=== PATIENT | female | born 1945 | race Caucasian/White ===

== ENCOUNTER → 2016-09-10 | Outpatient (CLI) | payer MEDICARE, BC ==
[~2016-09-10] MED LIST: ABREVA TOP; ACETAMINOPHEN PO; ALPRAZOLAM1 MG PO; AMLODIPINE BESYL5 MG PO; APRESOLINE10 MG PO; B-121000 MC3 PO; BENTYL10 MG PO; CAPECITABINE150 MG PO; CAPECITABINE500 MG PO; CLONIDINE PO; CYANOCOBALAM1000 MCG PO; DESYREL150 M1; DEXAMETHASONE4 MG PO; DOCU SOFT100 M1 PO; DOCUSATE SODIU100 MG PO; FOLIC ACID1 MG PO; HCTZ PO; HYDROCHLOROTHIA25 MG PO; HYDROMORPHONE ER8 MG PO; HYDROMORPHONE HC8 MG PO; K-TAB ER20 MEQ PO; KCL PO; LASIX PO; LEVAQUIN750 M1 PO; LIPITOR PO; LOMOTIL WHITE2.5 MG PO; LONSURF 15 MG-1 EACH PO; LOPRESSOR PO; METHIMAZOLE10 MG PO; METHIMAZOLE5 MG PO; METOPROLOL SUCC50 MG PO; METRONIDAZOLE PO; MORGIDOX100 MG PO; MULTI VITAMIN1 EACH PO; NORCO 7.5/325 T1 TAB PO; NORVASC PO; OMEPRAZOLE20 M1 PO; OMNICEF300 MG PO; PATIENT'S PHARMACY; PHENERGAN25 MG PO; PRILOSEC PO; PRILOSEC20 MG PO; PRINIVIL20 M1 PO; TEMAZEPAM30 MG PO; TRAZODONE PO; TUMS300 MG( 75 PO; VICODIN 5/500 T1 TAB PO; XANAX1 MG PO; XELODA500 MG PO; ZOCOR20 MG; ZOFRAN8 MG PO; ZYRTEC10 M1 PO; ZYRTEC10 M2 PO
--- NOTE | ~2016-09-10 | CT2 ---
[facility] A Service [facility] RADIOLOGY TEXT RESULTS PATIENT: JUWAN ALEXANDER LOCATION: [facility] : 44 UNIT #: [id number] AGE: [address]: Bekah Chaudhari MD SEX: F ORDER DR: [id number] [place], [place] [address] [id number] O MR#: [id number] Acc #: [id number] NAME: JUWAN ALEXANDER : 1945 SEX: F STUDY DATE/TIME: 09/10/2016 9:54 UNIT: [facility] ROOM: STUDY DESCRIPTION: CT Abd and Pelv W Cont Attending Physician: Bekha Chaudhari M.D. Referring Physician: Bekah Chaudhari M.D. Ordering Physician: Bekah Chaudhari M.D. Primary Care Physician: Primary Care Physician No MEDICAL IMAGING REPORT This report is preliminary unless electronic signature is present EXAM CT abdomen and pelvis with contrast INDICATION Restaging colon cancer. Observation for metastatic disease. PROCEDURE Contrast-enhanced CT of the abdomen and pelvis. COMPARISON 05/21/[address] exam was performed with one or more of the following radiation dose reduction techniques: automatic exposure control, adjustment of mA and/or kV according to patient size, and iterative reconstruction. FINDINGS Refer to the separately dictated chest CT for thoracic findings. ABDOMEN WITH CONTRAST: Hepatic lesions are larger. An index hypoenhancing mass on the right hepatic lobe measures 2.6 cm, previously 1.1 cm. The spleen, kidneys, adrenal glands and pancreas unremarkable. Small stones in the gallbladder. No evidence for active inflammation. Mentioned in the chest CT, there is irregular enhancement and pleural fluid at the left lung base suspicious for pleural-based metastatic disease. The pancreas is unremarkable. Bowel loops nondilated. Previous right hemicolectomy. Large ventral hernia containing bowel loops is stable. [facility] A Service [facility] RADIOLOGY TEXT RESULTS PATIENT: JUWAN ALEXANDER LOCATION: [facility] : 44 UNIT #: [id number] AGE: [address]: Bekah Chaudhari MD SEX: F ORDER DR: PELVIS WITH CONTRAST: Previous hysterectomy. No pelvic mass or adenopathy. No aggressive appearing bone lesion. IMPRESSION 1. Interval progression of hepatic metastatic disease. 2. Refer to the separately dictated chest CT for thoracic findings. Dictated by... Sascha Blevins M.D. THIS IS AN ELECTRONICALLY VERIFIED REPORT Sascha Blevins M.D. at 09/10/2016 4:52 PM Ketan TD: 09/10/2016 12:40 JOB #: [id number] MEDICAL IMAGING REPORT COPY
--- NOTE | ~2016-09-10 | CT55 ---
[facility] A Service of [facility] RADIOLOGY TEXT RESULTS PATIENT: JUWAN ALEXANDER [facility] UNIT #: [id number] AGE: [address]: Bekah Chaudhari MD SEX: F ORDER DR: [id number] [facility] [address] [place], [place] [address] [id number] O MR#: [id number] Acc #: [id number] NAME: JUWAN ALEXANDER : 1945 SEX: F STUDY DATE/TIME: 09/10/2016 9:54 UNIT: [facility] ROOM: STUDY DESCRIPTION: CT Chest W Con Attending Physician: Bekah Chaudhari M.D. Referring Physician: Bekah Chaudhari M.D. Ordering Physician: Bekah Chaudhari M.D. Primary Care Physician: Primary Care Physician No MEDICAL IMAGING REPORT This report is preliminary unless electronic signature is present EXAM CT chest with contrast INDICATION Restaging colon cancer. Observation for metastatic disease. PROCEDURE Contrast-enhanced CT of the chest COMPARISON 05/21/[address] exam was performed with one or more of the following radiation dose reduction techniques: automatic exposure control, adjustment of mA and/or kV according to patient size, and iterative reconstruction. FINDINGS Interval improvement in the large left effusion. There are multiple bilateral pulmonary nodules. Index nodule right lower lobe measures 3.2 x 1.5 cm, previously 2.4 x 1.2 cm. Many of the left lung nodules were obscured by the large effusion on the prior. In the upper lung zone they appear increased as well. There is a trace left pleural effusion with rim enhancement. There is some atelectasis or other opacity at the left lung base. There is a 1.9 cm low attenuation left hilar nodule not seen on the prior. 3.6 cm ill-defined low attenuation expansion at the left second costosternal junction. IMPRESSION 1. Interval progression of pulmonary metastatic disease. 2. Apparently new small left hilar node. 3. Irregular appearance of the left second costosternal junction could represent osseous metastatic disease. STS. [facility] A Service of [facility] RADIOLOGY TEXT RESULTS PATIENT: JUWAN ALEXANDER LOCATION: [facility] : 44 UNIT #: [id number] AGE: [address]: Bekah Chaudhari MD SEX: F ORDER DR: Dictated by... Sascha Blevins M.D. THIS IS AN ELECTRONICALLY VERIFIED REPORT Sascha Blevins M.D. at 09/10/2016 4:52 PM Ketan TD: 09/10/2016 12:37 JOB #: [id number] MEDICAL IMAGING REPORT COPY
[2016-09-10 12:16] LABS: POC - CREATININE 0.54 mg/dL (0.44-1.03); POC - GFR >60.0 mL/min (>60)
== END | disposition home or self-care (01) ==
LOC: CCAT 09:16
PROVIDERS: Internal Medicine Hematology
DX: C18.7 Malignant neoplasm of sigmoid colon (principal); C78.7 Secondary malignant neoplasm of liver and intrahepatic bile duct; C78.00 Secondary malignant neoplasm of unspecified lung
CPT/HCPCS: 71260; 74177; 82565; Q9967

== ENCOUNTER → 2016-11-26 | Outpatient (CLI) | payer MEDICARE, BC ==
--- NOTE | ~2016-11-26 | CT2 ---
[facility] A Service of [facility] RADIOLOGY TEXT RESULTS PATIENT: JUWAN ALEXANDER [facility] UNIT #: [id number] AGE: [address]: Bekah Chaudhari MD SEX: F ORDER DR: [id number] [facility]. [place], [place] [address] [id number] O MR#: [id number] Acc #: [id number] NAME: JUWAN ALEXANDER. : 1945 SEX: F STUDY DATE/TIME: 11/26/2016 10:36 UNIT: [facility] ROOM: STUDY DESCRIPTION: CT Abd and Pelv W Cont Attending Physician: Bekah Chaudhrai M.D. Referring Physician: Bekah Chaudhari M.D. Ordering Physician: Bekah Chaudhari M.D. Primary Care Physician: Primary Care Physician No MEDICAL IMAGING REPORT This report is preliminary unless electronic signature is present EXAM CT abdomen and pelvis with contrast DATE 11/26/2016 HISTORY Physician's order states malignant neoplasm in the sigmoid colon, malignant neoplasm in the colon, unspecified. Patient states complaints of chest pain, discomfort, and occasional constipation, shortness breath. Patient states additional history of colon resection and hysterectomy. Observation of metastatic disease. Restaging. COMPARISON CT abdomen and pelvis with contrast 09/10/2016. CT abdomen and pelvis with contrast 05/21/2016. PROCEDURE 1.5 mm axial images through the abdomen and pelvis after intravenous contrast administration. Enteric contrast was not administered. Sagittal and coronal reformatted images were obtained. This CT exam was performed with one or more of the following radiation dose reduction techniques: automatic exposure control, adjustment of mA and/or kV according to patient size, and iterative reconstruction. FINDINGS Abdomen findings: Surgical changes of the ascending colectomy with ileocolic anastomoses in the right mid abdomen, without evidence of local disease recurrence at the anastomotic site. No evidence of high-grade large or small bowel obstruction. Irregular hypodense lesions are scattered throughout the liver parenchyma consistent with multifocal metastatic disease. Some of the preexisting [facility] A Service of [facility] RADIOLOGY TEXT RESULTS PATIENT: JUWAN ALEXANDER LOCATION: [facility] #: [id number] : 43 UNIT #: [id number] AGE: [address]: Bekah Chaudhari MD SEX: F ORDER DR: lesions appear larger. For example, a 2.9 x 2.9 skin lesion in the posterior right hepatic lobe previously measured 2.6 x 2.3 cm. Another lesion in the posterior right hepatic lobe measures 1.8 cm compared to 1.1 cm previously. Aggregate lesions along the falciform ligament of the liver in the left hepatic lobe appear larger now measuring 3.4 cm short axis compared to 2.8 cm on the previous study. A few new tiny nodules are thought to be present in the right hepatic lobe, as well. The left portal vein is poorly opacified on this examination, and a tumor thrombus within the left portal venous branch cannot be excluded. The main portal vein and right portal vein branch appear well opacified and patent. Spleen, pancreas, adrenals are normal. Bilateral renal cysts noted. No pathologic mesenteric or retroperitoneal adenopathy is identified. There is a left-side ventral hernia containing nonobstructed small bowel loops, similar to prior exam. Pelvis findings: Trace pelvic free fluid is seen on the right of midline. Urinary bladder, rectum within normal limits. Presumed hysterectomy. No pathologic pelvic adenopathy is seen. 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 Advanced degenerative changes are present in the lumbar spine with mild lumbar levoscoliosis. No suspicious osteolytic or osteoblastic lesions are appreciated. Grade 1/2 anterolisthesis of L5 upon S1 unchanged. Abnormal chest findings have been reported separately on the CT chest study from this same date. IMPRESSION 1. Progression of hepatic metastatic disease since 09/10/2016. 2. Question of tumor thrombus within the left portal vein branch (series 7 image 144). 3. Uncomplicated cholelithiasis, not included in the body of the report. 4. Ascending colectomy with ileocolic anastomoses. 5. CT chest findings have been reported separately on this same date. 6. Please refer to the body of the report for additional CT abdomen and pelvis findings. Dictated by... Angela Guerra M.D. THIS IS AN ELECTRONICALLY VERIFIED REPORT Angela Guerra M.D. at 11/27/2016 7:09 AM [facility]/cindy TD: 11/26/2016 18:53 JOB #: [id number] MEDICAL IMAGING REPORT [facility] A Service of [facility] RADIOLOGY TEXT RESULTS PATIENT: JUWAN ALEXANDER LOCATION: [facility] : 44 UNIT #: [id number] AGE: [address]: Bekah Chaudhari MD SEX: F ORDER DR: Page 1 of 1 COPY
--- NOTE | ~2016-11-26 | CT55 ---
[facility] A Service of [facility] RADIOLOGY TEXT RESULTS PATIENT: JUWAN ALEXANDER [facility] : [facility] UNIT #: [id number] AGE: [address]: Bekah Chaudhari MD SEX: F ORDER DR: [id number] [facility] [address] [place], [place] [address] [id number] O MR#: [id number] Acc #: [id number] NAME: JUWAN ALEXANDER. : 1945 SEX: F STUDY DATE/TIME: 11/26/2016 10:36 UNIT: [facility] ROOM: STUDY DESCRIPTION: CT Chest W Con Attending Physician: Bekah Chaudhari M.D. Referring Physician: Bekah Chaudhari M.D. Ordering Physician: Bekah Chaudhari M.D. Primary Care Physician: Primary Care Physician No MEDICAL IMAGING REPORT This report is preliminary unless electronic signature is present EXAM CT chest with contrast DATE 11/26/2016 HISTORY 71-year-old female; history of colon cancer with colon resection. Chest pain and discomfort with shortness of breath. Observation for metastatic disease. Restaging. COMPARISON CT chest with contrast 09/10/2016 PROCEDURE 5 mm axial images through the chest after IV contrast administration. Sagittal and coronal reformatted images were obtained. This CT exam was performed with one or more of the following radiation dose reduction techniques: automatic exposure control, adjustment of mA and/or kV according to patient size, and iterative reconstruction. FINDINGS Numerous noncalcified bilateral lower lobe pulmonary nodules and masses have significantly increased in size since the 09/10/2016 examination, consistent with progression of disease. An index lesion in the left lower lobe measures 2.8 cm compared to 2.5 cm previously. Index lesion in the right lower lobe measures 2.5 cm compared to 2.0 cm previously. No definite new pulmonary nodules are identified. Extensive matted pleural-based metastatic disease in left lower lobe with probable loculated metastatic pleural fluid may be very slightly increased. Metastatic necrotic adenopathy in the left hilum is larger, currently measuring 2.2 cm compared to 1.9 cm previously. Other mildly enlarged mediastinal lymph nodes including 1 cm short axis precarinal node and 7 mm STS. [facility] A Service of [facility] RADIOLOGY TEXT RESULTS PATIENT: JUWAN ALEXANDER LOCATION: [facility] : 44 UNIT #: [id number] AGE: [address]: Bekah Chaudhari MD SEX: F ORDER DR: short-axis prevascular node appears stable. There is an expansile osteolysis of the sternal manubrium, which has progressed since the 09/10/2016 examination. Abnormal soft tissue thickening involves the left first and second costochondral junction and extends into the anterior mediastinum. IMPRESSION 1. Progression of metastatic disease within the chest. Preexisting pulmonary nodules and masses have significantly increased in size, and pleural-based metastatic disease within the left lower chest appears slightly increased, as well. 2. Expansile osteolysis of the sternomanubrial mixed with abnormal soft tissue extension into the anterior mediastinum and the left first and second costochondral junctions appears increased since the 09/10/2016 examination. 3. Left hilar adenopathy has increased. 4. CT abdomen and pelvis performed on the same date has been dictated separately. Dictated by... Angela Guerra M.D. THIS IS AN ELECTRONICALLY VERIFIED REPORT Angela Guerra M.D. at 11/27/2016 7:09 AM [facility]/cindy TD: 11/26/2016 19:59 JOB #: [id number] MEDICAL IMAGING REPORT Page 1 of 1 COPY
[2016-11-26 09:45] LABS: POC - CREATININE 0.65 mg/dL (0.44-1.03); POC - GFR >60.0 mL/min (>60)
== END | disposition home or self-care (01) ==
LOC: CCAT 08:56
PROVIDERS: Internal Medicine Hematology
DX: C18.7 Malignant neoplasm of sigmoid colon (principal); C78.7 Secondary malignant neoplasm of liver and intrahepatic bile duct; K80.20 Calculus of gallbladder without cholecystitis without obstruction; R91.8 Other nonspecific abnormal finding of lung field; C78.2 Secondary malignant neoplasm of pleura; M89.58 Osteolysis, other site; M79.89 Other specified soft tissue disorders; R59.0 Localized enlarged lymph nodes; Z90.49 Acquired absence of other specified parts of digestive tract
CPT/HCPCS: 71260; 74177; 82565; J1642; Q9967

== ENCOUNTER 2017-01-31 15:11 | Emergency (ER) | payer MEDICARE, BC ==
[~2017-01-31] VITALS: Ht 165.1 cm; Wt 94.8 kg
--- NOTE | ~2017-01-31 | EKG ---
PATIENT: JUWAN ALEXANDER UNIT #: [id number] Ventricular Rate: 74 BPM Atrial Rate: 74 BPM P-R Interval: 156 ms QRS Duration: 88 ms Q-T Interval: 428 ms QTC Calculation(Bezet): 475 ms P Brandon: 49 degrees Calculated R Brandon: 10 degrees Calculated T Brandon: 3 degrees Diagnosis Line: Normal sinus rhythm Diagnosis Line: Possible Left atrial enlargement Diagnosis Line: Borderline ECG Diagnosis Line: When compared with ECG of 20-MAY-2016 19:25, Diagnosis Line: Criteria for Inferior infarct are no longer Diagnosis Line: Present Diagnosis Line: Nonspecific T wave abnormality no longer evident Diagnosis Line: in Lateral leads Diagnosis Line: Confirmed by FABI DE JESUS MD ([id number]) on Diagnosis Line: 02/01/2017 7:33:12 AM INTERPRETING MD: LIZA ROMEO
[~2017-01-31 15:11] MED LIST changes: -LEVAQUIN750 M1 PO; -PATIENT'S PHARMACY
[2017-01-31] MEDS ORDERED: TEMAZEPAM30 MG PO (15:37)
[2017-01-31] MEDS ORDERED: PATIENT'S PHARMACY (15:37)
[2017-01-31] MEDS ORDERED: PRILOSEC PO (15:38)
[2017-01-31] MEDS ORDERED: LEVAQUIN750 M1 PO (15:38)
[2017-01-31] MEDS ORDERED: METHIMAZOLE5 MG PO (15:38)
[2017-01-31] MEDS ORDERED: NORVASC PO (15:38)
[2017-01-31] MEDS ORDERED: FOLIC ACID1 MG PO (15:38)
[2017-01-31] MEDS ORDERED: LOPRESSOR PO (15:39)
[2017-01-31 17:15] LABS: BASOPHIL% 0.3 % (0-2.5); EOSINOPHIL% 0.2 % (0.0-7.0); HEMATOCRIT 42.2 % (35.0-45.0); HEMOGLOBIN 13.5 gm/dL (12.0-16.0); LYMPHOCYTE# 0.8 X10e3 (1.0-3.5); LYMPHOCYTE% 8.6 % (17.0-45.0); MEAN CELL VOLUME 94.8 FL (83-96); MEAN CORPUSCULAR HEMOGLOBIN 30.4 PG (28-34); MEAN CORPUSCULAR HGB CONC 32.1 g/dL (30-36); MEAN PLATELET VOLUME 9.7 FL (6.5-11.5); MONOCYTE# 1.3 X10e3 (0-1.0); MONOCYTE% 13.9 % (3.0-12.0); NEUTROPHIL# 7.2 X10e3 (1.5-7.1); PLATELET COUNT 234 X10e3 (140-420); RED BLOOD COUNT 4.46 X10e (3.90-5.30); RED CELL DISTRIBUTION WIDTH 17.2 % (11.0-15.5); WHITE BLOOD COUNT 9.4 X10e3 (4.0-10.5)
[2017-01-31 17:20] LABS: DIFF IND NO
[2017-01-31 17:37] LABS: POC - CKMB 3.3 ng/mL (0.0-7.9); POC - TROPONIN <0.05 ng/mL (<=0.05)
[2017-01-31 18:55] LABS: ALBUMIN SERUM 2.7 g/dL (3.5-5.0); BILIRUBIN, DIRECT 0.3 mg/dL (0.0-0.2); BILIRUBIN,INDIRECT 0.8 mg/dL (0.0-0.9); BILIRUBIN,TOTAL 1.1 mg/dL (0.2-2.0); CALCIUM SERUM 8.3 mg/dL (8.4-10.2); CREATININE SERUM 0.5 mg/dL (0.6-1.4); GLOM FILT RATE Estimated 96.7 mL/min (>60); PROTEIN TOTAL SERUM 6.6 g/dL (6.0-8.3)
[2017-01-31 18:58] LABS: POTASSIUM 2.7 mmol/L (3.5-5.1)
== END 2017-01-31 20:07 | disposition home or self-care (01) ==
LOC: CED 15:11
PROVIDERS: Emergency Medicine
DX: E87.6 Hypokalemia (principal); I10 Essential (primary) hypertension; Z88.1 Allergy status to other antibiotic agents; Z88.2 Allergy status to sulfonamides; Z79.899 Other long term (current) drug therapy
CPT/HCPCS: 36415; 80048; 80076; 82553; 82947; 84484; 85025; 93005; 96360; 99285

== ENCOUNTER → 2017-02-18 | Outpatient (CLI) | payer MEDICARE, BC ==
[~2017-02-18] MED LIST changes: +LEVAQUIN750 M1 PO; +PATIENT'S PHARMACY
--- NOTE | ~2017-02-18 | CT55 ---
[facility] A Service of [facility] RADIOLOGY TEXT RESULTS PATIENT: JUWAN ALEXANDER LOCATION: [facility] : 44 UNIT #: [id number] AGE: [address]: Robbi Gregg MD SEX: F ORDER DR: [id number] O MR#: [id number] [facility] #: [id number] NAME: JUWAN ALEXANDER : 1945 SEX: F STUDY DATE/TIME: 02/18/2017 10:21 UNIT: [facility] ROOM: STUDY DESCRIPTION: CT Chest W Con Attending Physician: Robbi Gregg M.D. Referring Physician: Robbi Gregg M.D. Ordering Physician: Robbi Gregg M.D. Primary Care Physician: Primary Care Physician No MEDICAL IMAGING REPORT This report is preliminary unless electronic signature is present. EXAM CT chest with contrast, 02/18/2017 HISTORY 71-year-old female left side chest pain and shortness of breath. History of esophageal cancer, colon and lung cancer. History radiation therapy. Last chemotherapy treatment approximately 6 months ago. Observation for metastatic disease. Restaging. COMPARISON CT chest with contrast, 11/26/2016 PROCEDURE 5.0 mm axial images through the chest after intravenous contrast administration. Sagittal and coronal reformatted images were obtained. This CT exam was performed with one or more of the following radiation dose reduction techniques: automatic exposure control, adjustment of mA and/or kV according to patient size, and iterative reconstruction. FINDINGS Nonocclusive filling defects are demonstrated within segmental branches of the right upper and right lower lobe consistent with pulmonary emboli. These findings are new in comparison to the CT chest from 11/26/2016. I personally called these pertinent findings to the office of Dr. Robbi Gregg on 02/19/2017 at 10:41 a.m. Extensive noncalcified pulmonary nodules and masses consistent with metastatic disease. While a single nodule within the left upper lobe is slightly smaller measuring 2.0 cm compared to 2.4 cm previously, most of the nodules are stable to slightly increased. For example, an index right lower lobe nodule now measures 2.9 cm compared to 2.6 cm previously. An index left lower lobe nodule measures about 3.2 cm compared to 2.8 cm [facility] A Service of [facility] RADIOLOGY TEXT RESULTS PATIENT: JUWAN ALEXANDER LOCATION: [facility] : 43 UNIT #: [id number] AGE: [address]: Robbi Gregg MD SEX: F ORDER DR: previously. An index right middle lobe nodule measures 3.3 x 2.5 cm compared to 3.0 x 2.0 cm previously. Pleural-based metastatic disease in the left lower thorax is stable to slightly increased, as well, likely malignant loculated pleural fluid within it. Trace right pleural fluid has developed. Necrotic left hilar adenopathy is stable measuring about 2.1 cm. Subcarinal adenopathy is stable in short axis size measuring 1.6 cm but now has some central necrosis. Expansile osteolytic lesion within the sternal manubrium with extrinsic soft tissue component into the superior mediastinum, also involving the left first and second costochondral junction, similar to prior. No definite new osseous metastatic disease is seen. Heterogeneous nodularity of the thyroid gland, unchanged from prior, may represent other benign or malignant etiology. Ill-defined low-density lesions in the liver, consistent with metastatic disease are again noted. To the extent that they are included in the imaging field of view, the dominant lesions appear unchanged. Adrenal glands appear unremarkable. Spleen appears within normal limits. Pancreas within normal limits. Small gallstones are present. No upper abdominal ascites is identified. IMPRESSION 1. Constellation of findings consistent with slight progression of metastatic disease in the chest when carefully compared to the CT chest from 11/26/2016. Please refer to the body of the report for index measurements. 2. Nonocclusive segmental pulmonary emboli are noted within the right upper and right lower lobe. These findings are new in comparison to the CT chest from 11/26/2016. I personally called the findings to the office of Dr. Robbi Gregg prior to the time of this dictation today. 3. To the extent that the upper abdomen was included in the imaging field of view, the hepatic metastatic disease appears roughly stable. 4. Osseous metastatic disease involving the sternal manubrium and left second and first costochondral junction is unchanged. No evidence of new osseous metastatic disease in the chest. Dictated by... Angela Guerra M.D. [facility] A Service of [facility] & [facility] RADIOLOGY TEXT RESULTS PATIENT: JUWAN ALEXANDER LOCATION: [facility] : 43 UNIT #: [id number] AGE: [address]: Robbi Gregg MD SEX: F ORDER DR: THIS IS AN ELECTRONICALLY VERIFIED REPORT Angela Guerra M.D. at 02/21/2017 7:33 AM [facility]/mandeep TD: 02/19/2017 15:47 JOB #: [id number] MEDICAL IMAGING REPORT Page 1 of 1
[2017-02-18 10:15] LABS: POC - CREATININE 0.99 mg/dL (0.44-1.03)
== END | disposition home or self-care (01) ==
LOC: SCT 09:45
PROVIDERS: Radiology Radiation Oncology
DX: C78.7 Secondary malignant neoplasm of liver and intrahepatic bile duct (principal); C79.51 Secondary malignant neoplasm of bone; C18.9 Malignant neoplasm of colon, unspecified; I26.99 Other pulmonary embolism without acute cor pulmonale
CPT/HCPCS: 71260; 82565; Q9967